=== PATIENT | male | born 1955 | race Caucasian/White ===

== ENCOUNTER 2017-12-12 17:37 | Emergency (ER) | payer BC, OTHER ==
[~2017-12-12] VITALS: Ht 180.3 cm; Wt 108.5 kg
[~2017-12-12 17:37] MED LIST: ALLO300T2 PO; ASPI81TA28 PO; EPP3/2 IM; LISI40TA PO; SIMV20TA5 PO
[2017-12-12 17:49] VITALS: Ht 180.3 cm; Wt 108.5 kg
[2017-12-12] MEDS ORDERED: METOCLOPRAMIDE HCL INJ 5 MG/ML 2 ML VIAL IV STA (18:11)
[2017-12-12] MEDS ORDERED: KETOROLAC TROMETHAMINE 30 MG/ML VIAL IV STA (18:11)
[2017-12-12] MEDS ORDERED: ACETAMINOPHEN 500 MG TAB PO STA (18:11)
[2017-12-12] MEDS ORDERED: ATEN-173 PO (18:16)
--- NOTE | 2017-12-12 18:42 | EMERGENCY ROOM VISIT NOTE ---
History Report prepared by Doug: Blayne George Under the Supervision of: Dr. Fausto Martinez M.D. First contact with patient: 17:59 Chief Complaint: BACK PAIN Stated Complaint: SEVERE BACK PAIN History of Present Illness The patient is a 62 year old white male with a past medical history of hip STEM cell surgery, HTN, DM, gout, and diverticulitis who presents to the ED with a cc of waxing/waning right lower back pain beginning three days ago. He rates his discomfort as a 5/10 in severity. He describes his pain as an aching sensation and states it radiates to his right abdomen. Positive cough, diarrhea , abdominal pain, and loss of appetite. Negative back surgeries, history of cancer, incontinence, groin pain, tobacco and drug use, testicular swelling, and testicular pain. The patient states that he has had back pain for a month, but reports he was able to control the pain with medication. He states that his pain resolved until three nights ago when the pain returned. The patient states that during the day he was carrying a heavy bag, but states he was fine the rest of the day after carrying it. He reports that the pain worsened earlier today, which caused him to take Tylenol at 1445. The patient states he had a small bowel movement at 1030 today. Source of History: patient Onset: three days ago Position: back (lower) Symptom Intensity: 5/10 Quality: ache Timing: waxes/wanes Modifying Factors (Relieving): tylenol Associated Symptoms: + cough, + abdominal pain, + diarrhea Review of Systems See HPI for pertinent positives and negatives. A total of ten systems were reviewed and were otherwise negative. Past Medical & Surgical Medical Problems: (1) Gout (2) Hyperlipidemia Family History Heart disease Social History Smoking Status: Never Smoker Alcohol Use: occasionally Marital Status: Housing Status: lives with family Current/Historical Medications Scheduled Allopurinol (Zyloprim), 300 MG PO QAM Aspirin (Aspirin Ec), 81 MG PO QAM Atenolol (Tenormin), 25 MG PO QAM Lisinopril (Zestril), 40 MG PO QAM Tamsulosin Hcl (Flomax), 0.4 MG PO DAILY Tramadol Hcl (Ultram), 50 MG PO Q8H Scheduled PRN Epinephrine (Epipen), 0.3 MG IM UD PRN for ALLERGIC REACTION Oxycodone Immediate Rel Tab (Roxicodone Ir), 1 TAB PO TID PRN for Pain Allergies Coded Allergies: Bee Venom (Verified Allergy, Unknown, Unknown, 12/12/17) Reported by PT. Physical Exam Vital Signs Date Time Temp Pulse Resp B/P (MAP) Pulse Ox O2 Delivery O2 Flow Rate FiO2 12/12/17 19:35 72 20 132/85 97 Room Air 12/12/17 18:43 97 Room Air 12/12/17 17:49 36.3 72 20 152/111 97 Room Air Physical Exam GENERAL: Awake, alert, well-appearing, NAD HENT: Normocephalic, atraumatic. EYES: Normal conjunctiva. Sclera non-icteric. NECK: Supple. No nuchal rigidity. FROM. RESPIRATORY: CTAB, no rhonchi, wheezing, crackles CARDIAC: RRR, no MRG ABDOMEN: Soft, NTND, BS+ MSK: No chest wall TTP, no LE edema, no CVA TTP, ER/IR of hip with no pain NEURO: GCS 15, CN 2-12 intact, moves all 4s on command, benign straight leg raise, no saddle anesthesia, NVI bilateral lower extremities. SKIN: No rash or jaundice noted. Medical Decision & Procedures ER Provider Diagnostic Interpretation: Radiology results as stated below per my review and radiologist interpretation: L-SPINE MIN 4 VIEWS ROUTINE CLINICAL HISTORY: Back pain. COMPARISON: Lumbar spine radiographs September 29, 2014. FINDINGS: Alignment of lumbar spine is anatomic. No fracture or suspicious lesion is identified. There is moderate multilevel disc space narrowing, facet arthrosis and osteophytosis of the lumbar spine. IMPRESSION: 1. No lumbar spine fracture. 2. Moderate multilevel degenerative disc disease and facet arthrosis of the lumbar spine. Electronically signed by: Chava Quan M.D. 12/12/2017 7:23 PM Dictated Date/Time: 12/12/2017 7:22 PM KUB CLINICAL HISTORY: Constipation. COMPARISON STUDY: CT of the abdomen September 23, 2012. FINDINGS: The bowel gas pattern is normal. A 5 mm right pelvic calcification is noted. There is a moderate amount stool within the ascending colon and transverse colon. There is no significant stool within the rectum. There is severe arthritis of the right hip. IMPRESSION: 1. No evidence for a bowel obstruction. 2. 5 mm right pelvic calcification which could reflect a phlebolith or distal right ureteral calculus. Electronically signed by: Chava Quan M.D. 12/12/2017 7:29 PM Dictated Date/Time: 12/12/2017 7:27 PM CHEST ONE VIEW PORTABLE CLINICAL HISTORY: Cough. COMPARISON STUDY: No previous studies for comparison. FINDINGS: Lung volumes are normal. There is no consolidation to suggest pneumonia and there is no evidence of pulmonary edema. Cardiomediastinal silhouette is unremarkable. IMPRESSION: No acute cardiopulmonary findings. Electronically signed by: Chava Quan M.D. 12/12/2017 7:21 PM Dictated Date/Time: 12/12/2017 7:[address] OF THE ABDOMEN AND PELVIS WITHOUT CONTRAST, STONE PROTOCOL CLINICAL HISTORY: Right sided back pain, blood in urine. COMPARISON STUDY: CT of the abdomen September 23, 2012. TECHNIQUE: Helical axial images of the abdomen and pelvis were obtained without IV or oral contrast according to renal stone protocol. A dose lowering technique was utilized adhering to the principles of ALARA. FINDINGS: A 5 mm distal right ureteral calculus results in mild right hydroureteronephrosis. There is mild perinephric infiltration. A 4 mm right renal calculus is noted. There are no left ureteral calculi. There is no left hydronephrosis. Evaluation of the remainder of the abdomen and pelvis is suboptimal on this unenhanced exam. There is possible fatty infiltration of the liver. A small hiatal hernia is noted. The spleen, adrenal glands and pancreas are normal. The appendix is normal. There is extensive colonic diverticulosis without evidence for acute diverticulitis. Severe osteoarthritis of the right hip is noted. There is no ascites or lymphadenopathy. There are no suspicious osseous lesions. A suspected 1 cm left renal cyst is noted. IMPRESSION: 1. 5 mm distal right ureteral calculus which results in mild right hydroureteronephrosis. 2. 4 mm right renal calculus. 3. Extensive colonic diverticulosis without evidence for acute diverticulitis. Electronically signed by: Chava Quan M.D. 12/12/2017 7:42 PM Dictated Date/Time: 12/12/2017 7:34 PM Laboratory Results 12/12/17 18:28 Red Blood Count 4.91, Mean Corpuscular Volume 93.5, Mean Corpuscular Hemoglobin 32.8, Mean Corpuscular Hemoglobin Concent 35.1, Mean Platelet Volume 10.3, Neutrophils (%) (Auto) 81.7, Lymphocytes (%) (Auto) 9.6, Monocytes (%) (Auto) 8.1, Eosinophils (%) (Auto) 0.2, Basophils (%) (Auto) 0.1, Neutrophils # (Auto) 11.85, Lymphocytes # (Auto) 1.39, Monocytes # (Auto) 1.18, Eosinophils # (Auto) 0.03, Basophils # (Auto) 0.02 12/12/17 18:28 Test 12/12/17 17:57 12/12/17 18:28 Urine Color YELLOW Urine Appearance CLEAR (CLEAR) Urine pH 5.0 (4.5-7.5) Urine Specific [place] 1.027 (1.000-1.030) Urine Protein TRACE (NEG) Urine Glucose (UA) NEG (NEG) Urine Ketones 1+ (NEG) Urine Occult Blood 3+ (NEG) Urine Nitrite NEG (NEG) Urine Bilirubin NEG (NEG) Urine Urobilinogen NEG (NEG) Urine Leukocyte Esterase NEG (NEG) Urine WBC (Auto) 1-5 /hpf (0-5) Urine RBC (Auto) 10-30 /hpf (0-4) Urine Hyaline Casts (Auto) 1-5 /lpf (0-5) Urine Epithelial Cells (Auto) 0-5 /lpf (0-5) Urine Bacteria (Auto) NEG (NEG) White Blood Count 14.51 K/uL (4.8-10.8) Red Blood Count 4.91 M/uL (4.7-6.1) Hemoglobin 16.1 g/dL (14.0-18.0) Hematocrit 45.9 % (42-52) Mean Corpuscular Volume 93.5 fL (80-100) Mean Corpuscular Hemoglobin 32.8 pg (25-34) Mean Corpuscular Hemoglobin Concent 35.1 g/dl (32-36) Platelet Count 152 K/uL (130-400) Mean Platelet Volume 10.3 fL (7.4-10.4) Neutrophils (%) (Auto) 81.7 % Lymphocytes (%) (Auto) 9.6 % Monocytes (%) (Auto) 8.1 % Eosinophils (%) (Auto) 0.2 % Basophils (%) (Auto) 0.1 % Neutrophils # (Auto) 11.85 K/uL (1.4-6.5) Lymphocytes # (Auto) 1.39 K/uL (1.2-3.4) Monocytes # (Auto) 1.18 K/uL (0.11-0.59) Eosinophils # (Auto) 0.03 K/uL (0-0.5) Basophils # (Auto) 0.02 K/uL (0-0.2) RDW Standard Deviation 46.8 fL (36.4-46.3) RDW Coefficient of Variation 13.6 % (11.5-14.5) Immature Granulocyte % (Auto) 0.3 % Immature Granulocyte # (Auto) 0.04 K/uL (0.00-0.02) Prothrombin Time 10.4 SECONDS (9.0-12.0) Prothromb Time International Ratio 1.0 (0.9-1.1) Activated Partial Thromboplast Time 27.0 SECONDS (21.0-31.0) Partial Thromboplastin Ratio 1.0 Anion Gap 9.0 mmol/L (3-11) Est Creatinine Clear Calc Drug Dose 69.6 ml/min Estimated GFR () 63.7 Estimated GFR (Non- 55.0 BUN/Creatinine Ratio 19.5 (10-20) Calcium Level 9.5 mg/dl (8.5-10.1) Laboratory results reviewed by me Medications Administered Medications (Trade) Dose Ordered Sig/Serene Route Start Time Stop Time Status Last Admin Dose Admin Metoclopramide HCl (Reglan Inj) 10 mg NOW STAT IV 12/12/17 18:11 12/12/17 18:14 DC 12/12/17 18:40 10 MG Acetaminophen (Tylenol Tab) 1,000 mg NOW STAT PO 12/12/17 18:11 12/12/17 18:14 DC 12/12/17 18:39 1,000 MG Ketorolac Tromethamine (Toradol Inj) 30 mg NOW STAT IV 12/12/17 18:11 12/12/17 18:14 DC 12/12/17 18:40 30 MG Magnesium Oxide (Mag-Ox Tab) 800 mg ONE STAT PO 12/12/17 19:10 12/12/17 19:15 DC 12/12/17 19:46 800 MG Potassium Chloride (Klor-Con M10) 40 meq STK-MED ONCE .ROUTE 12/12/17 19:21 12/12/17 19:22 DC 12/12/17 19:46 40 MEQ ED Course 1801: The patient was evaluated in room A02. A complete history and physical exam was performed. 1903: I reevaluated the patient and he reports his pain is improved and he feels better. I discussed getting a CT for a kidney stone. 1957: I reevaluated the patient. Discussed results and discharge instructions: He verbalized understanding and agreement. The patient is ready for discharge. Medical Decision The patient is a 62 year old white male with a past medical history of hip STEM cell surgery, HTN, DM, gout, and diverticulitis who presents to the ED with a cc of waxing/waning right lower back pain beginning three days ago. Triage Nursing notes reviewed. The patient's presentation and history were concerning for etiologies such as musculoskeletal, disc herniation, fracture, aortic disease, metastatic disease, cord compression, discitis, infection, renal colic, gastrointestinal, acute exacerbation of chronic back pain, sciatica, cauda equina, as well as others were entertained. Patient was seen and evaluated the bedside. Patient does have known history of hypertension and gout. Patient also relates having some sort of stem cell hip procedure. Patient was complaining of some mild right-sided back pain. Patient sounds as though he may strain it easy was lifting heavy bag of corn. Patient is also concerned about a possible blockage to see an incomplete bowel movement today. Patient denies any nausea or vomiting, fevers, chills. Patient has a mild nonproductive cough. He also does complain of some mild URI type symptoms. Patient has a normal neurologic exam distally. Patient only has very mild reproducible right-sided paraspinal TTP. Patient has a negative straight leg raise. Patient has no saddle anesthesia. Patient had plain films as well as alert blood work completed. Patient was also given medications for symptoms. Patient's plain films did show questionable kidney stone on KUB. Patient's chest x-ray clear. L-spine films negative. Patient did have a CT noncontrast to further evaluate a possible kidney stone given the patient's blood in his urine. Patient does have a 5 mm stone with mild obstruction hydroureteronephrosis. Patient does have mild white count of 14,000 however believe this is likely reactive just from the patient's discomfort kidney stone. Patient's prior creatinine several years ago was 1 today is 1.3. Patient is urinating without issue. Patient was informed of all findings. Patient does not have pyelonephritis. Given the patient's back pain is improved but this most likely etiology of his discomfort. I do not believe he needs more advanced imaging at this time. Patient was deemed suitable for outpatient follow-up and discharge given his improvement in his discomfort. Patient was given strict follow-up, discharge, and return precautions. All questions were answered. Patient was deemed suitable for outpatient follow-up at this time. Patient agreed with the plan of care and was safely discharged home. The chart was completed utilizing [employer] voice recognition software. Grammatical errors, random word insertions, pronoun errors, and incomplete sentences are an occasional consequence of this system due to software limitations, ambient noise, and hardware issues. Any formal questions or concerns about the content, text, or information contained within the body of this dictation should be directly addressed to the physician for clarification. Medication Reconcilliation Current Medication List: was personally reviewed by me Blood Pressure Screening Patient's blood pressure: Elevated blood pressure Blood pressure disposition: Elevated BP felt to be situational Impression Primary Impression: Ureterolithiasis Additional Impressions: Nephrolithiasis Renal colic on right side Hypokalemia Scribe Attestation The scribe's documentation has been prepared under my direction and personally reviewed by me in its entirety. I confirm that the note above accurately reflects all work, treatment, procedures, and medical decision making performed by me. Departure Information Dispostion Home / Self-Care Prescriptions Tamsulosin Hcl (FLOMAX) 0.4 Mg Cap 0.4 MG PO DAILY for 10 Days, #10 CAP Prov: Fausto Martinez M.D. 12/12/17 Oxycodone Immediate Rel Tab (ROXICODONE IR) 5 Mg Tab 1 TAB PO TID Y for Pain for 4 Days, #12 TAB Prov: Fausto Martinez M.D. 12/12/17 Tramadol Hcl (ULTRAM) 50 Mg Tab 50 MG PO Q8H, #12 TAB PRN PAIN Prov: Fausto Martinez M.D. 12/12/17 Referrals No Doctor, Assigned (PCP) Kenan Pulido MD Patient Instructions Kidney Stones, Kidney Stones - [facility], Kidney Stones Tx Meds, [facility] Additional Instructions Please return to the emergency department if you have worsening or recurrent symptoms not amenable to at-home treatment. Please call for a follow-up appointment with her primary care physician. Please take your medications as prescribed. If you have other concerns and/or complaints please feel free to also call your primary care physician's office or return the ED for further evaluation, management, and treatment. You received narcotic or benzodiazepene medication while in the emergency room today. This is an addictive medication that may cause drowziness as well as constipation. Do not drive, operate heavy machinery, or drink alcohol under the influence of this medication. You may take 600 mg Ibuprofen every 6 hours as needed for pain with food for no more than 2 consecutive days. You may take tylenol 1000 mg every 6 hours as needed for pain. You may take motrin and tylenol separately or at the same time. If he still have discomfort you may try to take tramadol. This can be a sedating medicine please do not use if you require full attention. If you still have discomfort you may take Roxicodone but only take if needed as this is a narcotic medication that is have 40 and may cause you to also be sedating. Do not use if you require your full attention. Take your medications as prescribed. Follow-up with your urologist if he still have significant discomfort. You have been examined and treated today on an emergency basis only. This is not a substitute for, or an effort to provide, complete comprehensive medical care. It is impossible to recognize and treat all injuries or illnesses in a single emergency department visit. It is therefore important that you follow up closely with [facility], your PCP, and/or your specialist(s). Call as soon as possible for an appointment. Thank you for your time and consideration. I look forward to speaking with you again soon. Please don't hesitate to call us if you have any questions. Problem Qualifiers
[2017-12-12 18:43] VITALS: O2SAT 97
[2017-12-12 18:47] LABS: BASO % 0.1 %; BASO ABS # 0.02 K/uL (0-0.2); EOS % 0.2 %; EOS ABS # 0.03 K/uL (0-0.5); HEMATOCRIT 45.9 % (42-52); HEMOGLOBIN 16.1 g/dL (14.0-18.0); IG# 0.04 K/uL (0.00-0.02); LYMPH % 9.6 %; LYMPH ABS # 1.39 K/uL (1.2-3.4); MEAN CELL VOLUME 93.5 fL (80-100); MEAN CORPUSCULAR HEMOGLOBIN 32.8 pg (25-34); MEAN CORPUSCULAR HGB CONC 35.1 g/dl (32-36); MEAN PLATELET VOLUME 10.3 fL (7.4-10.4); MONO % 8.1 %; MONO ABS # 1.18 K/uL (0.11-0.59); NEUT % 81.7 %; NEUT ABS # 11.85 K/uL (1.4-6.5); PLATELET COUNT 152 K/uL (130-400); RED CELL DISTRIBUTION WIDTH CV 13.6 % (11.5-14.5); RED CELL DISTRIBUTION WIDTH SD 46.8 fL (36.4-46.3); WHITE BLOOD COUNT 14.51 K/uL (4.8-10.8)
[2017-12-12 19:06] LABS: CALCIUM 9.5 mg/dl (8.5-10.1); CREATININE 1.36 mg/dl (0.60-1.40); POTASSIUM 3.3 mmol/L (3.5-5.1)
[2017-12-12] MEDS ORDERED: MAGNESIUM OXIDE 400 MG TAB PO STA (19:10)
[2017-12-12] MEDS ORDERED: POTASSIUM CHLORIDE 20 MEQ TABCR PO STA (19:10)
[2017-12-12] MEDS ORDERED: POTASSIUM CHLORIDE 10 MEQ TABCR ONE (19:21)
--- NOTE | 2017-12-12 19:22 | DIAGNOSTIC IMAGING REPORT ---
CHEST ONE VIEW PORTABLE CLINICAL HISTORY: Cough. COMPARISON STUDY: No previous studies for comparison. FINDINGS: Lung volumes are normal. There is no consolidation to suggest pneumonia and there is no evidence of pulmonary edema. Cardiomediastinal silhouette is unremarkable. IMPRESSION: No acute cardiopulmonary findings. Electronically signed by: Chava Quan M.D. 12/12/2017 7:21 PM Dictated Date/Time: 12/12/2017 7:20 PM
--- NOTE | 2017-12-12 19:25 | DIAGNOSTIC IMAGING REPORT ---
L-SPINE MIN 4 VIEWS ROUTINE CLINICAL HISTORY: Back pain. COMPARISON: Lumbar spine radiographs September 29, 2014. FINDINGS: Alignment of lumbar spine is anatomic. No fracture or suspicious lesion is identified. There is moderate multilevel disc space narrowing, facet arthrosis and osteophytosis of the lumbar spine. IMPRESSION: 1. No lumbar spine fracture. 2. Moderate multilevel degenerative disc disease and facet arthrosis of the lumbar spine. Electronically signed by: Chava Quan M.D. 12/12/2017 7:23 PM Dictated Date/Time: 12/12/2017 7:22 PM
--- NOTE | 2017-12-12 19:31 | DIAGNOSTIC IMAGING REPORT ---
KUB CLINICAL HISTORY: Constipation. COMPARISON STUDY: CT of the abdomen September 23, 2012. FINDINGS: The bowel gas pattern is normal. A 5 mm right pelvic calcification is noted. There is a moderate amount stool within the ascending colon and transverse colon. There is no significant stool within the rectum. There is severe arthritis of the right hip. IMPRESSION: 1. No evidence for a bowel obstruction. 2. 5 mm right pelvic calcification which could reflect a phlebolith or distal right ureteral calculus. Electronically signed by: Chava Quan M.D. 12/12/2017 7:29 PM Dictated Date/Time: 12/12/2017 7:27 PM
--- NOTE | 2017-12-12 19:43 | DIAGNOSTIC IMAGING REPORT ---
CT OF THE ABDOMEN AND PELVIS WITHOUT CONTRAST, STONE PROTOCOL CLINICAL HISTORY: Right sided back pain, blood in urine. COMPARISON STUDY: CT of the abdomen September 23, 2012. TECHNIQUE: Helical axial images of the abdomen and pelvis were obtained without IV or oral contrast according to renal stone protocol. A dose lowering technique was utilized adhering to the principles of ALARA. FINDINGS: A 5 mm distal right ureteral calculus results in mild right hydroureteronephrosis. There is mild perinephric infiltration. A 4 mm right renal calculus is noted. There are no left ureteral calculi. There is no left hydronephrosis. Evaluation of the remainder of the abdomen and pelvis is suboptimal on this unenhanced exam. There is possible fatty infiltration of the liver. A small hiatal hernia is noted. The spleen, adrenal glands and pancreas are normal. The appendix is normal. There is extensive colonic diverticulosis without evidence for acute diverticulitis. Severe osteoarthritis of the right hip is noted. There is no ascites or lymphadenopathy. There are no suspicious osseous lesions. A suspected 1 cm left renal cyst is noted. IMPRESSION: 1. 5 mm distal right ureteral calculus which results in mild right hydroureteronephrosis. 2. 4 mm right renal calculus. 3. Extensive colonic diverticulosis without evidence for acute diverticulitis. Electronically signed by: Chava Quan M.D. 12/12/2017 7:42 PM Dictated Date/Time: 12/12/2017 7:34 PM
[2017-12-12] MEDS ORDERED: TRAM-453 PO (19:55)
[2017-12-12] MEDS ORDERED: OXYC1TAB3 PO (19:55)
[2017-12-12] MEDS ORDERED: TAMS0.4C38 PO (19:55)
[2017-12-12 20:19] VITALS: BP 131/85; PULSE 72; TEMP 36.3; O2SAT 97
== END 2017-12-12 20:19 | disposition home or self-care (01) ==
LOC: C.EDB 17:40 → C.EDA 20:19
DX: N20.2 Calculus of kidney with calculus of ureter (principal); N23 Unspecified renal colic; E87.6 Hypokalemia; R05 Cough; R19.7 Diarrhea, unspecified; R10.9 Unspecified abdominal pain; I10 Essential (primary) hypertension; E11.9 Type 2 diabetes mellitus without complications; Z79.82 Long term (current) use of aspirin; Z79.899 Other long term (current) drug therapy; Z82.49 Family history of ischemic heart disease and other diseases of the circulatory system

== ENCOUNTER → 2017-12-24 | Outpatient (CLI) | payer OTHER ==
[~2017-12-24] MED LIST changes: +ATEN-173 PO; -SIMV20TA5 PO
--- NOTE | 2017-12-24 09:20 | DIAGNOSTIC IMAGING REPORT ---
KUB HISTORY: Follow-up study in a patient with nephrolithiasis and occasional right-sided flank pain N20.0 Nephrolithiasis COMPARISON: CT abdomen and pelvis 12/12/2017, KUB to 2017 FINDINGS: The bowel gas pattern is non-obstructive. There is no organomegaly. The previously noted nonobstructing 4 mm calculus of the inferior pole right kidney is not definitively seen on this study. Renal shadows are partially obscured by bowel gas. The previously seen 4 mm calculus of the distal right ureter has migrated distally approximately 3 mm, now likely within region of the distal right ureter or urinary bladder lumen. No pneumoperitoneum or pneumatosis. No fracture. Severe degenerative changes about the right hip. Multilevel degenerative changes of the spine. IMPRESSION: Distal migration of the 4 mm distal right ureteral calculus, now likely within the region of the distal most right ureter or within the urinary bladder lumen. Electronically signed by: Matti Brennan M.D. 12/24/2017 9:19 AM Dictated Date/Time: 12/24/2017 9:14 AM
== END | disposition home or self-care (01) ==
LOC: C.RAD 08:42
PROVIDERS: ATTEND Urology
DX: N20.0 Calculus of kidney (principal); N20.1 Calculus of ureter

== ENCOUNTER → 2017-12-29 | Outpatient (CLI) | payer OTHER | END | disposition home or self-care (01) | LOC: C.LABSPEC 11:06 | PROVIDERS: ATTEND Nurse Practitioner Adult Health | DX: N20.0 Calculus of kidney (principal) ==

== ENCOUNTER → 2018-05-31 | Outpatient (CLI) | payer OTHER | END | disposition home or self-care (01) | LOC: C.LAB 17:07 | PROVIDERS: ATTEND Urology | DX: N40.0 Benign prostatic hyperplasia without lower urinary tract symptoms (principal) ==

== ENCOUNTER → 2018-06-17 | Outpatient (CLI) | payer OTHER ==
--- NOTE | 2018-06-17 16:08 | DIAGNOSTIC IMAGING REPORT ---
KUB CLINICAL HISTORY: NEPHROLITHIASIS pain COMPARISON STUDY: 12/24/2017 FINDINGS: The soft tissues, psoas shadows, renal outlines and intestinal gas pattern appear normal. There is no evidence for bowel obstruction. No abnormal abdominal calcifications are seen. IMPRESSION: Normal study. Distal right ureteral calculus appears to have passed The above report was generated using voice recognition software. It may contain grammatical, syntax or spelling errors. Electronically signed by: Wilson Carter M.D. 06/17/2018 4:07 PM Dictated Date/Time: 06/17/2018 4:05 PM
== END | disposition home or self-care (01) ==
LOC: C.RAD 15:24
PROVIDERS: ATTEND Urology
DX: N20.0 Calculus of kidney (principal)

== ENCOUNTER 2021-04-17 04:46 | Observation (INO) ==
--- NOTE | 2021-04-10 12:05 | PAT Medication Instructions ---
Medication Instructions Date of Service April 10, 2021 Home Medications Medication Instructions Recorded epinephrine 0.3 mg/0.3 mL 0.3 mg IM Q10M PRN #2 ea 07/04/20 injection, auto-injector allopurinol 300 mg tablet 300 mg PO QAM #90 tab 02/13/21 hydrochlorothiazide 12.5 mg tablet 12.5 mg PO QAM #90 tab 02/13/21 hydrocortisone-acetic acid 1 %-2 % 5 drp OTIC (EAR) BID #10 ml 03/05/21 ear drops Wheeled Walker #1 ea 04/03/21 aspirin 81 mg tablet 81 mg PO QAM omega-3 acid ethyl esters 1 gram capsule 1 cap PO QAM cholecalciferol (vitamin D3) 10 mcg (400 unit) capsule 1,000 units PO QAM epinephrine 0.3 mg/0.3 mL injection, auto-injector 0.3 mg IM Q10M PRN vitamin E 200 unit capsule 200 unit PO QAM atenolol 25 mg PO QAM telmisartan 40 mg PO QAM allopurinol 300 mg tablet 300 mg PO QAM hydrochlorothiazide 12.5 mg tablet 12.5 mg PO QAM hydrocortisone-acetic acid 1 %-2 % ear drops 5 drp OTIC (EAR) BID pantoprazole [Protonix] 40 mg PO QAM Continue as directed epinephrine 0.3 mg/0.3 mL injection, auto-injector 0.3 mg IM Q10M PRN hydrocortisone-acetic acid 1 %-2 % ear drops 5 drp OTIC (EAR) BID STOP taking 2 weeks before surgery If surgery is within 2 weeks, stop taking as soon as possible. omega-3 acid ethyl esters 1 gram capsule 1 cap PO QAM vitamin E 200 unit capsule 200 unit PO QAM DO NOT take the morning of surgery cholecalciferol (vitamin D3) 10 mcg (400 unit) capsule 1,000 units PO QAM telmisartan 40 mg PO QAM hydrochlorothiazide 12.5 mg tablet 12.5 mg PO QAM Take morning of surgery With a small sip of water, OTHERWISE NOTHING TO EAT OR DRINK AFTER MIDNIGHT: aspirin 81 mg tablet 81 mg PO QAM atenolol 25 mg PO QAM allopurinol 300 mg tablet 300 mg PO QAM pantoprazole [Protonix] 40 mg PO QAM Other Notes If you have any questions please call us at [phone] or [phone] or [phone] or [phone]
--- NOTE | 2021-04-11 08:54 | Anesthesiology Consultation ---
Date of Service April 11, 2021 Assessment & Plan (1) Encounter for pre-operative examination: Chart Review Chart Review: Acceptable Risk for Surgery (pending preop Covid testing results ) and Patient seen in Pre Admission Testing Per PAT appt on 04/11/21, patient denies any recent travel. No known Covid positive contacts or Covid related symptoms. No known Covid infection in the past 90 days. Preop Covid testing scheduled 04/15/21= will await results. Educated on importance of self quarantining, social distancing and wearing mask in public both for the patient and household contacts. Pt fully vaccinated. Teaching & Discussion Pre-Anesthesia Teaching/Discussion Notes: Instructed NPO after midnight before surgery,except medications with 15 cc of water. Medication instructions provided according to the [facility] guidelines. History Surgery Operation Date: 04/17/21 10:40 Proposed Procedures p Right Total Hip Arthroplasty - Ariel Beauchamp MD Height/Weight Height: 5 ft 11 in Weight: 106.5 kg Allergies Allergy/AdvReac Type Severity Reaction Status Date / Time bee venom protein (honey bee) Allergy Severe Dysphagia/s Verified 04/11/21 08:59 welling Medications Home Medications Medication Instructions Recorded Confirmed Last Taken aspirin 81 mg tablet 81 mg PO QAM tab 04/15/19 04/10/21 01/09/21 08:00 omega-3 acid ethyl esters 1 gram 1 cap PO QAM cap 06/23/19 04/10/21 01/13/21 08:00 capsule cholecalciferol (vitamin D3) 10 1,000 units PO QAM cap 12/27/19 04/10/21 01/13/21 08:00 mcg (400 unit) capsule miscellaneous medical supply See Rx Instructions MS NEELY 12/27/19 04/10/21 Unknown epinephrine 0.3 mg/0.3 mL 0.3 mg IM Q10M PRN #2 ea 07/04/20 04/10/21 Unknown injection, auto-injector vitamin E 200 unit capsule 200 unit PO QAM 11/29/20 04/10/21 01/13/21 08:00 atenolol 25 mg PO QAM 01/07/21 04/10/21 01/14/21 08:00 telmisartan 40 mg PO QAM 01/07/21 04/10/21 01/14/21 08:00 allopurinol 300 mg tablet 300 mg PO QAM #90 tab 02/13/21 04/10/21 Unknown hydrochlorothiazide 12.5 mg tablet 12.5 mg PO QAM #90 tab 02/13/21 04/10/21 Unknown hydrocortisone-acetic acid 1 %-2 % 5 drp OTIC (EAR) BID #10 ml 03/05/21 04/10/21 Unknown ear drops Wheeled Walker #1 ea 04/03/21 04/10/21 Unknown pantoprazole [Protonix] 40 mg PO QAM 04/09/21 04/10/21 Unknown Past Medical History Medical History Adenomatous colon polyp 1992-removed showing focal dysplasia. 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 Aunt Colorectal cancer Brother Family history of kidney cancer Other No family history of adverse response to anesthesia No family history of bleeding disorder Denies family history of Ovarian cancer Myocardial infarction Breast cancer Past Surgical History Surgical History H/O stem cell transplant (01/2015) R hip H/O tooth extraction History of colonoscopy History of esophageal dilatation History of esophagogastroduodenoscopy (EGD) History of hernia repair Umbilical hernia repair 2009 Past Anesthesia History No Hx of Anesthesia Complications and No Family Hx of Anesthesia Complications History of PONV No Hx of PONV and No Hx of Motion Sickness Social History Smoking Status: Never smoker Do You Dip or Chew Tobacco: No Hx Alcohol Use: Yes Alcohol type: beer, wine and hard liquor alcohol intake frequency: a few times a week Hx Substance Use: Yes substance use type: marijuana Last Used Substance Other:: 1 week Review of Systems Patient denies chest pain, shortness of breath, dyspnea on exertion, cough, wheezing, palpitations. No hx of seizures, stroke, [place], apnea/snoring. No hx of blood clots or blood transfusions Physical Exam Vital Signs VITALS BP 119/73 P 60 TEMP 97.9 SP02 98% RESP 16 Constitutional no acute distress ENMT Mouth: no TMJ clicking Thyromental Distance: > or= 3.5 Finger Breadths (3.5) Mallampati Class: II Missing molars Gold caps on molars Neck + limited neck extension (moderate to severe ) Respiratory normal respiratory effort; no respiratory distress Auscultation: lungs clear to auscultation bilaterally; no wheezes Cardiovascular Rate/Rhythm: regular rate and regular rhythm Heart Sounds: no murmur Vessels: no carotid bruit Musculoskeletal Spine: no pain with cervical ROM Extremities: extremities normal to inspection Psychiatric Orientation: alert Lab Results Anesthesia Preop Results Results Anesthesia Widget: WBC 6.63 K/uL (4.8-10.8) 04/11/21 Hgb 15.2 g/dL (14.0-18.0) 04/11/21 Hct 44.9 % (42-52) 04/11/21 Plt 157 K/uL (130-400) 04/11/21 Na 139 mmol/L (136-145) 04/11/21 K 4.0 mmol/L (3.5-5.1) 04/11/21 Cl 105 mmol/L (98-107) 04/11/21 CO2 29 mmol/L (21-32) 04/11/21 BUN 24 mg/dl (7-18) H 04/11/21 Creat 0.92 mg/dl (0.6-1.4) 04/11/21 Glucose Level 111 mg/dl (70-99) H 04/11/21 PT 10.1 Seconds (9.0-12.0) 04/11/21 PTT 27.3 Seconds (21.0-31.0) 04/11/21 INR 1.0 (0.9-1.1) 04/11/21 TSH 6.530 uIu/ml (0.300-4.500) H 03/27/21 Free T4 0.89 ng/dl (0.8-1.6) 03/27/21 Blood Type O Negative 04/11/21 Antibody Screen NEGATIVE 04/11/21 Testing Electrocardiogram Date: 04/11/21 Findings: + SB @ (53bpm) Otherwise normal EKG per cardio. Chest X-Ray Date: 04/11/21 Findings: + NAD
--- NOTE | 2021-04-16 15:42 | Anesthesiology Consultation ---
Date of Service April 16, 2021 History Surgery Operation Date: 04/17/21 07:00 Proposed Procedures p Right Total Hip Arthroplasty - Ariel Beauchamp MD Height/Weight Height: 5 ft 11 in Weight: 106.5 kg Allergies Allergy/AdvReac Type Severity Reaction Status Date / Time bee venom protein (honey bee) Allergy Severe Dysphagia/s Verified 04/17/21 05:25 welling Medications Home Medications Medication Instructions Recorded Confirmed Last Taken aspirin 81 mg tablet 81 mg PO QAM tab 04/15/19 04/17/21 04/17/21 03:45 omega-3 acid ethyl esters 1 gram 1 cap PO QAM cap 06/23/19 04/17/21 04/14/21 capsule cholecalciferol (vitamin D3) 10 1,000 units PO QAM cap 12/27/19 04/17/21 04/14/21 mcg (400 unit) capsule miscellaneous medical supply See Rx Instructions MS NELEY 12/27/19 04/10/21 Unknown epinephrine 0.3 mg/0.3 mL 0.3 mg IM Q10M PRN #2 ea 07/04/20 04/10/21 Unknown injection, auto-injector vitamin E 200 unit capsule 200 unit PO QAM 11/29/20 04/17/21 04/14/21 atenolol 25 mg PO QAM 01/07/21 04/17/21 04/17/21 03:45 telmisartan [Micardis] 40 mg PO QAM 01/07/21 04/17/21 04/17/21 03:45 allopurinol 300 mg tablet 300 mg PO QAM #90 tab 02/13/21 04/17/21 04/17/21 03:45 hydrochlorothiazide 12.5 mg tablet 12.5 mg PO QAM #90 tab 02/13/21 04/17/21 04/14/21 hydrocortisone-acetic acid 1 %-2 % 5 drp OTIC (EAR) BID #10 ml 03/05/21 04/17/21 04/03/21 ear drops Wheeled Walker #1 ea 04/03/21 04/10/21 Unknown pantoprazole [Protonix] 40 mg PO QAM 04/09/21 04/17/21 04/14/21 Active Medications Generic Name Dose Route Start Last Admin Trade Name Freq PRN Reason Stop Dose Admin Acetaminophen 1,000 mg 04/17/21 06:00 04/17/21 05:49 Acetaminophen 500 Mg Tab PO 04/17/21 18:00 1,000 mg PREOP JEANCARLOS Administration Famotidine 20 mg 04/17/21 06:00 04/17/21 05:49 Famotidine 20 Mg Tab PO 04/17/21 18:00 20 mg PREOP JEANCARLOS Administration Gabapentin 300 mg 04/17/21 06:00 04/17/21 05:49 Gabapentin 300 Mg Cap PO 04/17/21 18:00 300 mg PREOP JEANCARLOS Administration Lactated Ringer's 1,000 mls @ 15 mls/hr 04/17/21 06:00 04/17/21 05:48 Lr IV 04/17/21 18:00 15 mls/hr .Q24H JEANCARLOS Administration Lactated Ringer's 1,000 mls @ 60 mls/hr 04/17/21 06:00 04/17/21 05:50 Lr IV 04/17/21 22:39 Not Given .[id number] JEANCARLOS Tranexamic Acid 1,000 mg in 100 mls @ 600 mls/hr 04/17/21 06:00 04/17/21 06:52 Tranexamic Acid / 0.7% Nacl IV 04/17/21 18:00 600 mls/hr TODAY@0600 JEANCARLOS Administration Metoclopramide HCl 10 mg 04/17/21 06:00 04/17/21 05:49 Metoclopramide Hcl 10 Mg Tablet PO 04/17/21 18:00 10 mg PREOP JEANCARLOS Administration Past Medical History Medical History Adenomatous colon polyp 1992-removed showing focal dysplasia. 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 Aunt Colorectal cancer Brother Family history of kidney cancer Other No family history of adverse response to anesthesia No family history of bleeding disorder Denies family history of Ovarian cancer Myocardial infarction Breast cancer Past Surgical History Surgical History H/O stem cell transplant (01/2015) R hip H/O tooth extraction History of colonoscopy History of esophageal dilatation History of esophagogastroduodenoscopy (EGD) History of hernia repair Umbilical hernia repair 2010 Social History Smoking Status: Never smoker Do You Dip or Chew Tobacco: No Hx Alcohol Use: Yes Alcohol type: beer, wine and hard liquor alcohol intake frequency: a few times a week Hx Substance Use: Yes substance use type: marijuana Last Used Substance Other:: 1 week Physical Exam Vital Signs Last Vital Signs Temp 36.6 C 04/17/21 05:33 Pulse 62 04/17/21 05:33 Resp 20 04/17/21 05:33 BP 141/89 H 04/17/21 05:33 Pulse Ox 97 04/17/21 05:33 Testing Chest X-Ray Findings: + NAD
[2021-04-17] MEDS ORDERED: ACETAMINOPHEN 500 MG TAB PO SCH (06:00)
[2021-04-17] MEDS ORDERED: LR 60ML/HR IV SCH (06:00)
[2021-04-17] MEDS ORDERED: GABAPENTIN 300 MG CAP PO SCH (06:00)
[2021-04-17] MEDS ORDERED: ceFAZolin 2000MG 2,000 MG/15 ML SYR IV SCH (06:00)
[2021-04-17] MEDS ORDERED: TRANEXAMIC ACID 1,000 MG **IV Pre-op IV SCH (06:00)
[2021-04-17] MEDS ORDERED: FAMOTIDINE 20 MG TAB PO SCH (06:00)
[2021-04-17] MEDS ORDERED: METOCLOPRAMIDE HCL 10 MG TABLET PO SCH (06:00)
[2021-04-17] MEDS ORDERED: LR 500ML BOLUS, THEN 15ML/HR IV SCH (06:00)
[2021-04-17] MEDS ORDERED: BUPIVACAINE 0.5 % 5 MG/1 ML PF 10ML VIAL ONE (06:22)
[2021-04-17] MEDS ORDERED: BUPIVACAINE/EPINEPHRINE 0.5% MPF 1:200,000 30 ML VIAL ONE (06:36)
[2021-04-17] MEDS ORDERED: MIDAZOLAM HCL 1 MG/ML 2ML VIAL ONE ×2 (06:43→06:45)
[2021-04-17] MEDS ORDERED: fentaNYL citrate 100 MCG/2 ML VIAL ONE (06:45)
--- NOTE | 2021-04-17 06:49 | History & Physical Bridge Note ---
Date of Service April 17, 2021 History & Physical Bridge Note I have examined the patient, reviewed the History & Physical and in the interval since the performance of the History & Physical I have noted the following changes of clinical significance: no changes noted
[2021-04-17] MEDS ORDERED: MoRPHine SULFATE PF 1 MG/ML 10 ML AMP/VIAL ONE (06:51)
[2021-04-17] MEDS ORDERED: NALOXONE HCL 1 MG in SODIUM CHLORIDE 0.9% 1000ML 1,000 ML IV PRN (07:05)
[2021-04-17] MEDS ORDERED: ePHEDrine sulfate 50 MG/ML AMP IV PRN ×2 (07:05)
[2021-04-17] MEDS ORDERED: PROMETHAZINE HCL 6.25 MG in SODIUM CHLORIDE 0.9% 50 ML IV PRN (07:05)
[2021-04-17] MEDS ORDERED: LACTATED RINGER'S 500 ML IV PRN (07:05)
[2021-04-17] MEDS ORDERED: HYDROmorphone INJ 0.5 MG/0.5 ML SYR IV PRN ×2 (07:05→10:00)
[2021-04-17] MEDS ORDERED: KETOROLAC 30 MG/ML VIAL IV PRN (07:05)
[2021-04-17] MEDS ORDERED: NALOXONE HCL 0.08 MG in SYRINGE 1.8 ML IV PRN (07:05)
[2021-04-17] MEDS ORDERED: ONDANSETRON INJ 2 MG/ML 2 ML VIAL IV PRN ×3 (07:05→10:00)
[2021-04-17] MEDS ORDERED: MEPERIDINE HCL 25 MG/ML CARP/VIAL IV PRN (07:05)
[2021-04-17] MEDS ORDERED: diphenhydrAMINE 50 MG/ML VIAL IV PRN (07:05)
[2021-04-17] MEDS ORDERED: MoRPHine SULFATE 2 MG/ML CARP IV PRN (07:05)
[2021-04-17] MEDS ORDERED: fentaNYL citrate 100 MCG/2 ML VIAL IV PRN (07:05)
[2021-04-17] MEDS ORDERED: MoRPHine SULFATE PF 1 MG/ML 10 ML AMP/VIAL INT SPINAL ONE (07:05)
[2021-04-17] MEDS ORDERED: NALOXONE HCL 0.4 MG/1 ML VIAL/CARP IV PRN ×2 (07:05→10:00)
[2021-04-17] MEDS ORDERED: ATROPINE SULFATE 0.1 MG/ML 10ML SYR IV PRN (07:05)
[2021-04-17] MEDS ORDERED: SODIUM CHLORIDE 0.9% 1000ML 1,000 ML IV SCH (07:15)
[2021-04-17] MEDS ORDERED: DC INTRASPINAL MORPHINE SCH (07:15)
[2021-04-17] MEDS ORDERED: NO NARCOTICS OR SEDATIVES SCH (07:15)
[2021-04-17] MEDS ORDERED: PROPOFOL IV EMULSION 10 MG/ML 20 ML VIAL IV ONE (07:47)
[2021-04-17] MEDS ORDERED: GLYCOPYRROLATE 0.2 MG/ML VIAL ONE (07:47)
[2021-04-17] MEDS ORDERED: ePHEDrine sulfate 50 MG/ML SYR ONE (07:47)
--- NOTE | 2021-04-17 08:54 | Operative Report ---
Post Operative Report Pre & Post Diagnosis Operation Date: 04/17/21 07:00 Pre-Op Diagnosis: Right Hip Advanced Degenerative Joint Disease Post-Op Diagnosis: Right Hip Advanced Degenerative Joint Disease I identified the patient and participated in the time-out.: Yes Procedure Operation Date: 04/17/21 07:00 Actual Procedures p Right Total Hip Arthroplasty--Uncemented(Right) - Ariel Beauchamp MD Surgeon Ariel Beauchamp MD Clay Hoister EDEL Hall Estimated Blood Loss 300 Findings Consistent with Post-Op Diagnosis Operative findings revealed advanced right hip DJD. He had grade 4 [id number] disease of the femoral head and acetabulum. He had large osteophytes around the femoral head and femoral neck region as well as anterior acetabulum. Moderate- sized joint effusion. Fluids 1800 cc. Specimens Right femoral head sent for pathology. Drains None. Anesthesia Type Spinal MAC Complications none Disposition Accompanied Patient To Recovery: Yes Disposition: Recovery Room Indications Patient is a 65-year-old fairly active gentleman is had a long history of right hip pain discomfort is gradually gotten worse over time. He actually had a experimental injection done 6 years ago out in [place] and did pretty well for couple years. Over the years he developed increased pain discomfort which become more debilitating with time. Started really limit his activities. X-ray showed advanced hip DJD. He elected proceed with surgical treatment. Description of Procedure Operative implants consist of: 1 Biomet G7 size 56 mm acetabular shell. 2. 6.5 cancellous acetabular screws 135 mm length 125 mm length. 3. [place] hole church official. 4. Highly cross-linked polyethylene liner with a 56 mm outer diameter 36 mm diameter. 5. [place] Corail size 11 KLA femoral stem. 6. +5/36 mm ceramic articular ball. Patient was taken to the operating, identified, placed on the operating table supine position but all contact areas were properly padded. IV antibiotics tried by anesthesia team. A spinal anesthetic and been implemented holding area. Peters catheter was placed in sterile fashion. Patient was then placed in the left lateral decubitus position. Axillary roll was placed. Stulberg hip positioner was used for positioning. The right hip and leg were then prepped and draped in usual sterile fashion. A posterior lateral approach to the right hip was then performed to a curvilinear incision centered over the greater trochanter. Sharp dissection got through subcutaneous this down to level the IT band gluteal fascia the IT band gluteal fascia then incised longitudinally in line with skin incision. The underlying greater bursa was excised. The piriformis and external rotators as well as the posterior hip joint capsule were then released from the posterior aspect of the hip as a single layer. Great care was taken throughout the procedure protect the sciatic nerve at all times. Hip was internally rotated and dislocated. Femoral neck osteotomy cut was made with Final Cut 15 mm above the lesser trochanter. Femoral head was removed and sent for pathology. The femur was retracted anteriorly. Attention drawn the acetabulum. The acetabular labrum was excised. The pulmonary fat was excised. Sequential reaming the acetabular was then performed again with a size 47 and progressing up to a 55. I did reamed a little bit with a 56. I did wonder medialized this too much as he had quite a bit of offset and I was concerned about recreating that soft tissue tension. A 56 mm Biomet G7 acetabular shell was then placed in about 40 degrees lateral opening and 20 degrees of anteversion. Was fixed with two 6.5 cancellous acetabular screws. A trial liner was placed. Some anterior osteophytes were removed. Attention drawn the femur. The proximal femur was entered with a cookie-cutter followed by canal finder. I then broached begin the size 8 and progressing up to 11. Got excellent fit and 11. I the calcar reamer was used smooth and off the calcar. Then trialed the hip and the +5 articular ball recreated full stability in extension and extend external rotation along with flexion to 90 degrees internal rotation over [address] I elect to place these implants. All trial implants were removed. An apex hole church official was placed. Highly cross-linked polyethylene liner was placed. A DePuy size 11 KLA femoral stem was impacted in position. +5/36 mm ceramic articular ball was placed.. Hip was located once again found to be stable. Attention drawn toward closing. The wound was irrigated scope soft pulsatile lavage solution. I did inject locally with 60 cc of half percent Marcaine with epinephrine. The posterior capsule and external rotators were then repaired through drill holes in the posterior trochanter as a single layer with #2 Tycron suture. The IT band gluteal fascia then closed in 1 PDS suture running fashion for subcutaneous tissue then closed with 2 layers the deep layer #1 Vicryl suture and subcutaneous tissues with 2-0 Dexon suture in a buried interrupted fashion the skin was closed skin courtney. Leg was then cleaned dried a sterile dressing was Xeroform, 4 x 4's, sterile ABD pad, foam tape is applied. The patient then transferred to the recovery room in stable condition. Patient tolerated the procedure well and there were no complications. Jean-Pierre Hall, my physician esol teacher assistant, was present for the entire procedure. His assistance was essential and required for appropriate patient positioning, prepping and draping, surgical exposure, performing the technical details of the operation, placement the implants, closure of the wound, and placement of the sterile bandage. I attest to the content of the Intraoperative Record and any orders documented therein. Any exceptions are noted below.
--- NOTE | 2021-04-17 09:51 | Anesthesiology Progress Note ---
Date of Service April 17, 2021 Anesthesia Post Procedure Vital Signs Vital Signs: Temp Pulse Pulse Resp BP BP Pulse Ox 04/17/21 09:30 86 16 120/93 94 04/17/21 09:20 86 16 132/84 94 04/17/21 09:10 78 16 121/85 97 04/17/21 09:00 82 18 138/89 97 04/17/21 08:50 82 16 128/89 97 04/17/21 08:42 36.1 C L 93 H 12 102/78 97 04/17/21 05:33 36.6 C 62 20 141/89 H 97 Transfer of Care Handoff Completed per policy Notes Mental Status: alert / awake / arousable Patient Amnestic to Procedure: Yes Nausea / Vomiting: adequately controlled Pain: adequately controlled Airway Patency, RR, SpO2: stable & adequate BP & HR: stable & adequate Hydration State: stable & adequate Neuraxial Anesthesia: was administered and sensory block is resolving Anesthetic Complications: no major complications apparent
[2021-04-17] MEDS ORDERED: MAGNESIUM HYDROXIDE SUSP 30 ML UDC PO PRN (10:00)
[2021-04-17] MEDS ORDERED: bisacodyL 10 MG SUPP PR PRN (10:00)
[2021-04-17] MEDS ORDERED: ALUMINUM/MAGNESIUM SUSP 30 ML UDC PO PRN (10:00)
[2021-04-17] MEDS ORDERED: TAMSULOSIN HCL 0.4 MG CAP PO PRN (10:00)
[2021-04-17] MEDS ORDERED: traMADol HCL 50 MG TABLET PO PRN (10:00)
[2021-04-17] MEDS ORDERED: ACETIC AC/HYDROCORTISONE OTIC 10ML BTL OT SCH (10:00)
[2021-04-17] MEDS ORDERED: METOCLOPRAMIDE HCL INJ 5 MG/ML 2 ML VIAL IV PRN (10:00)
[2021-04-17] MEDS ORDERED: EPINEPHrine INJ 1 MG/ML AMP IM PRN (10:09)
[2021-04-17] MEDS: SODIUM CHLORIDE 0.9% 1000ML 1,000 ML IV SCH ×2 (10:20→17:08)
[2021-04-17] MEDS ORDERED: KETOROLAC TROMETHAMINE 15 MG/ML VIAL IV PRN (10:30)
[2021-04-17] MEDS: TOCOPHERYL, DL-ALPHA 100 UNITS CAP PO SCH (11:12)
[2021-04-17] MEDS: TELMISARTAN 40 MG TAB PO SCH (11:12)
[2021-04-17] MEDS: allopurinoL 300 MG TAB PO SCH (11:13)
[2021-04-17] MEDS: hydroCHLOROthiazide 25 MG TAB PO SCH (11:13)
[2021-04-17] MEDS: ATENOLOL 25 MG TABLET PO SCH (11:13)
[2021-04-17] MEDS: OMEGA-3 (PURIFIED FISH OIL) 1 GM CAP PO SCH (11:13)
[2021-04-17] MEDS: KETOROLAC TROMETHAMINE 15 MG/ML VIAL IV SCH ×3 (11:13→22:27)
[2021-04-17] MEDS: ASPIRIN 81 MG ECTAB PO SCH ×2 (11:13→22:25)
[2021-04-17] MEDS: DOCUSATE SODIUM 100 MG CAP PO SCH ×2 (11:14→22:26)
[2021-04-17] MEDS: PANTOprazole 40 MG TAB PO SCH (11:14)
[2021-04-17] MEDS: MULTIVITAMIN TAB PO SCH (11:14)
[2021-04-17] MEDS: CHOLECALCIFEROL 1,000 UNITS 25 MCG TAB PO SCH (11:14)
--- NOTE | 2021-04-17 11:19 | XRay Report ---
XR hip 1V RT w pelvis CLINICAL HISTORY: Postoperative evaluation. COMPARISON: Right hip radiographs February 07, 2021. FINDINGS: Alignment of the total right hip arthroplasty is anatomic. There is no periprosthetic frac ture or unexpected radiopaque foreign body. There are skin courtney. Acetabular screws are present. IMPRESSION: Expected findings following total right hip arthroplasty. ACT 112: Negative or not required by law. Electronically signed by: Chava Quan M.D. 04/17/2021 11:18 AM
[2021-04-17] MEDS: ACETAMINOPHEN 500 MG TAB PO SCH ×2 (13:58→22:26)
[2021-04-17] MEDS: ceFAZolin 2000MG 2,000 MG/15 ML SYR IV SCH ×2 (13:59→22:24)
[2021-04-17] MEDS ORDERED: TRANEXAMIC ACID / 0.7% NACL 1,000 MG/100 ML BAG IV SCH (14:45)
[2021-04-17] MEDS: ASCORBIC ACID 500 MG TAB PO SCH (17:08)
[2021-04-17] MEDS ORDERED: SENNA 8.6 MG TAB PO SCH (21:00)
[2021-04-18] MEDS: SODIUM CHLORIDE 0.9% 1000ML 1,000 ML IV SCH (00:31)
[2021-04-18] MEDS: KETOROLAC TROMETHAMINE 15 MG/ML VIAL IV SCH (05:56)
[2021-04-18] MEDS: ACETAMINOPHEN 500 MG TAB PO SCH (05:56)
[2021-04-18 07:14] LABS: Basophils # (auto) 0.02 K/uL (0-0.2); Basophils % (auto) 0.3 %; Eosinophils # (auto) 0.24 K/uL (0-0.5); Hematocrit (blood only) 34.4 % (42-52); Hemoglobin 11.4 g/dL (14.0-18.0); Immature Granulocytes # (auto) 0.01 K/uL (0.00-0.02); Immature Granulocytes % (auto) 0.1 %; Lymphocytes # (auto) 0.95 K/uL (1.2-3.4); Mean Corpuscular Hemoglobin 31.5 pg (25-34); Mean Corpuscular Hgb Conc 33.1 g/dL (32-36); Mean Platelet Volume 10.2 fL (7.4-10.4); Monocytes # (auto) 1.09 K/uL (0.11-0.59); Monocytes % (auto) 13.7 %; Neutrophils # (auto) 5.63 K/uL (1.4-6.5); Neutrophils % (auto) 70.9 %; Platelet Count 134 K/uL (130-400); RDW Coefficient of Variation 13.7 % (11.5-14.5); RDW Standard Deviation 47.5 fL (36.4-46.3); Red Blood Count 3.62 M/uL (4.7-6.1); White Blood Count 7.94 K/uL (4.8-10.8)
[2021-04-18] MEDS ORDERED: traMADol HCL 50 MG TABLET PO PRN (07:14)
[2021-04-18] MEDS ORDERED: HYDROmorphone INJ 0.5 MG/0.5 ML SYR IV PRN (07:14)
[2021-04-18] MEDS: ATENOLOL 25 MG TABLET PO SCH (07:39)
[2021-04-18] MEDS: TELMISARTAN 40 MG TAB PO SCH (07:39)
[2021-04-18] MEDS: ASPIRIN 81 MG ECTAB PO SCH (07:40)
[2021-04-18] MEDS: DOCUSATE SODIUM 100 MG CAP PO SCH (07:40)
[2021-04-18] MEDS: ASCORBIC ACID 500 MG TAB PO SCH (07:40)
[2021-04-18] MEDS: PANTOprazole 40 MG TAB PO SCH (07:41)
[2021-04-18] MEDS: allopurinoL 300 MG TAB PO SCH (07:41)
[2021-04-18] MEDS: MULTIVITAMIN TAB PO SCH (07:41)
[2021-04-18 07:42] LABS: BUN Creatinine Ratio 25.1 (10-20); Calcium 8.3 mg/dl (8.5-10.1); Creatinine Clr Calc Pharmacy 126.9 ml/min; Est GFR (African American) 113.3 ml/min; Est GFR (Non-African American) 97.8 ml/min; Potassium 3.6 mmol/L (3.5-5.1)
[2021-04-18] MEDS: TOCOPHERYL, DL-ALPHA 100 UNITS CAP PO SCH (07:42)
[2021-04-18] MEDS: CHOLECALCIFEROL 1,000 UNITS 25 MCG TAB PO SCH (07:42)
[2021-04-18] MEDS: OMEGA-3 (PURIFIED FISH OIL) 1 GM CAP PO SCH (07:42)
[2021-04-18] MEDS: hydroCHLOROthiazide 25 MG TAB PO SCH (07:43)
[2021-04-18] MEDS ORDERED: dexAMETHasone 10 MG in SYRINGE 0 ML IV SCH (08:00)
--- NOTE | 2021-04-18 08:30 | Progress Notes ---
DATE: 04/18/2021 SUBJECTIVE: A 65-year-old white gentleman postop day 1 from a right hip replacement. He is doing well. He denies any significant pain. He did get a little dizzy when he first got up yesterday, but is doing better since then. No chest pain or shortness of breath. OBJECTIVE: VITAL SIGNS: Temperature is 36.5. Vital signs stable. GENERAL: Shows a pleasant, middle-aged male. He is sitting up in bed, looks comfortable. LUNGS: Clear to auscultation. HEART: Regular rate and rhythm. ABDOMEN: Soft, nontender, nondistended. EXTREMITIES: Grossly neurovascularly intact except as follows: Examination of the right hip and leg reveals the leg lengths to be equal. Dressing is clean, dry and intact. The thigh is soft and supple. He is neurologically intact. He can dorsiflex and plantarflex his foot appropriately. LABORATORY DATA: Hemoglobin 11.4. Hematocrit 34.4. Electrolytes are pending. ASSESSMENT: A 65-year-old white gentleman postop day 1 from right hip replacement, doing well. His pain is controlled. He is neurologically intact. His hip is located. PLAN: 1. DVT prophylaxis including thigh-high TEDs, SCDs, and aspirin twice a day. 2. PT/OT. Weight bear as tolerated. Right total hip protocol. 3. Pain control, doing well with current pain regimen. 4. Disposition: Plan to discharge to home with some home health once adequately recovered. We will see how therapy goes this morning and how his pain is controlled.
--- NOTE | 2021-04-23 06:29 | Discharge Summary ---
Date of Service April 23, 2021 Discharge Data Procedures Performed Operation Date: 04/17/21 07:00 Actual Procedures p Right Total Hip Arthroplasty--Uncemented(Right) - Ariel Beauchamp MD Hospital Course (1) Status post total hip replacement, right: 65 year old patient admitted on 04/17/21 and underwent total hip arthroplasty. He tolerated the procedure well and there were no complications. Transferred to the PACU post op and later to the orthopedic floor for further care. He was given ancef for antibiotic prophylaxis. He was also given SUMANTH stockings, SCDs, and aspirin for DVT prophylaxis. Hemoglobin, hematocrit, and vital signs were monitored during his hospital stay and remained stable. Did not require any blood transfusions. There were no complications during his hospital stay. By post op day #1 the patient was tolerating a regular diet, pain was reasonably controlled with oral pain medicine, and he was participating in physical therapy. On post op day #1 the patient was discharged home and set up with home health care. He was given printed discharge instructions including prescriptions for extra strength tylenol, aspirin, and tramadol. Continue physical therapy, weight bearing as tolerated. Continue SUMANTH stockings. Continue hip precautions. Follow up approximately 2 weeks post op or sooner if there are problems or concerns. Coding Level of Care Code None Diagnoses Status post total hip replacement, right Z96.641
== END 2021-04-18 11:58 | disposition home health service (06) ==
LOC: 3E 04:46 → ASU 04:46
DX: M10.9 Gout, unspecified; Z91.030 Bee allergy status; M16.11 Unilateral primary osteoarthritis, right hip; E78.5 Hyperlipidemia, unspecified; I10 Essential (primary) hypertension; E03.9 Hypothyroidism, unspecified; Z20.822 Contact with and (suspected) exposure to COVID-19; Z79.899 Other long term (current) drug therapy; K76.0 Fatty (change of) liver, not elsewhere classified; K21.9 Gastro-esophageal reflux disease without esophagitis; Z79.82 Long term (current) use of aspirin